=== PATIENT | female | born 1975 | race Caucasian/White ===

== ENCOUNTER 2023-09-12 08:14 | Emergency (ER) | payer BC ==
[2023-09-12 08:35] VITALS: BP 142/73; PULSE 69; RESP 18; TEMP 98.5; BMI 28.3
[2023-09-12] MEDS ORDERED: LIDOCAINE 2.5%/PRILOCAINE 2.5% (5 Gram/TUBE) TP ONE (08:59)
[2023-09-12] MEDS ORDERED: DIPHTH,PERTUSS(ACELL),TET 0.5 ML DISP.SYRIN IM ONE (09:04)
[2023-09-12] MEDS: DIPHTH,PERTUSS(ACELL),TET 0.5 ML DISP.SYRIN IM ONE (09:05)
[2023-09-12] MEDS ORDERED: KETOROLAC TROMETHAMINE 30 MG/1 ML VIAL ONE (09:27)
[2023-09-12] MEDS: KETOROLAC TROMETHAMINE 30 MG/1 ML VIAL IM ONE (09:30)
[2023-09-12] MEDS: [UNRECOGNIZED DRUG - OTHER] IJ ONE (10:17)
== END 2023-09-12 10:42 | disposition home or self-care (01) ==
LOC: JERFT 08:14
PROC: 0HQ0XZZ Repair Scalp Skin, External Approach (ICD-10-PCS; principal; 2023-09-12)
PROC: 3E0233Z Introduction of Anti-inflammatory into Muscle, Percutaneous Approach (ICD-10-PCS; 2023-09-12)
PROC: 3E0234Z Introduction of Serum, Toxoid and Vaccine into Muscle, Percutaneous Approach (ICD-10-PCS; 2023-09-12)
DX: S01.01XA Laceration without foreign body of scalp, initial encounter (principal); W22.8XXA Striking against or struck by other objects, initial encounter
CPT/HCPCS: 90715; 99284-25

== ENCOUNTER 2023-09-19 07:56 | Emergency (ER) | payer BC ==
[2023-09-19 08:08] VITALS: BP 116/82; PULSE 102; RESP 18; TEMP 97.5; BMI 29.2
[2023-09-19] MEDS ORDERED: BACITRACIN ZINC 15 GM TUBE TOPICAL OINTMENT TP ONE (08:36)
[2023-09-19] MEDS ORDERED: BACITRACIN ZINC 15 GM TUBE TOPICAL OINTMENT ONE (08:37)
== END 2023-09-19 09:17 | disposition home or self-care (01) ==
LOC: JERFT 07:56
DX: Z48.02 Encounter for removal of sutures (principal)
CPT/HCPCS: 99281-25

== ENCOUNTER 2024-02-26 10:10 | Emergency (ER) | payer BC, OTHER ==
[2024-02-26 10:18] VITALS: BP 121/81; PULSE 61; RESP 16; TEMP 98.2; BMI 27.4
[2024-02-26] MEDS ORDERED: KETOROLAC TROMETHAMINE 30 MG/1 ML VIAL ONE (10:59)
[2024-02-26] MEDS: KETOROLAC TROMETHAMINE 30 MG/1 ML VIAL IM ONE (11:18)
== END 2024-02-26 12:57 | disposition home or self-care (01) ==
LOC: JERFT 10:10
PROC: 3E0133Z Introduction of Anti-inflammatory into Subcutaneous Tissue, Percutaneous Approach (ICD-10-PCS; principal; 2024-02-26)
DX: M79.645 Pain in left finger(s) (principal); M79.89 Other specified soft tissue disorders
CPT/HCPCS: 73130-TC-LT-FY; 99284-25